=== PATIENT | male | born 1970 | race Caucasian/White ===

== ENCOUNTER 2018-07-16 09:39 | Emergency (ER) | payer OTHER ==
[2018-07-16] MEDS: SILVER NITRATE APPLICATOR STICK TP ONE (09:54)
--- NOTE | 2018-07-16 10:05 | ED Physician Documentation ---
General Adult - HISTORIAN Historian: patient - HPI Stated Complaint: Avulsion Chief Complaint: Laceration/Recheck/Suture Additional Information: Patient presents to ED with a laceration to right thumb after slicing it with a vegetable isa. Patient states he just took off a layer of skin and it's not that deep but he can't get the bleeding to stop. Onset: hours (1) Timing: still present Severity: mild Further Comments: no - ROS CONST: denies: fever EYES/ENT: none CVS/RESP: none GI/: none MS/SKIN/LYMPH: none - PAST HX Past History: hypertension Other History: none Surgeries/Procedures: none Allergies/Adverse Reactions: Allergies Allergy/AdvReac Type Severity Reaction Status Date / Time No Known Drug Allergies Allergy Verified 07/16/18 09:54 Home Medications: Ambulatory Orders Medication Instructions Recorded Atorvastatin Calcium 10 mg PO DAILY 07/16/18 Metformin HCl [Glucophage] 500 mg PO DAILY 07/16/18 amLODIPine BESYLATE [Norvasc] 5 mg PO DAILY 07/16/18 - SOCIAL HX Smoking History: non-smoker Alcohol Use: none Drug Use: none - FAMILY HX Family History: No - VITAL SIGNS Vital Signs: Vital Signs Temp Pulse Resp BP Pulse Ox 98.3 F 73 19 109/60 98 07/16/18 09:46 07/16/18 09:46 07/16/18 09:46 07/16/18 09:46 07/16/18 09:46 - REVIEWED ASSESSMENTS Nursing Assessment Reviewed: Yes Vitals Reviewed: Yes ED Results Lab/Radiology - Orders Orders: ED Orders Category Date Time Status Apply/change dressing QID Care 07/16/18 09:55 Ordered Silver Nitrate Applicator Med 07/16/18 09:44 Once 1 each TP NOW ONE General Adult Physical Exam - PHYSICAL EXAM GENERAL APPEARANCE: no distress EENT: [place] NECK: normal inspection RESPIRATORY: no resp distress, breath sounds normal CVS: reg rate & rhythm ABDOMEN: soft RECTAL: deferred BACK: no CVA tenderness SKIN: warm/dry, other (5mm skin avulsion to tip of right thumb) EXTREMITIES: non-tender NEURO: oriented X3 Discharge Clincal Impression: Skin avulsion Referrals: Primary Doctor,No [Primary Care Provider] - 2 Days Additional Instructions: Keep pressure dressing for next 24 hours. Condition: Stable Disposition: 01 HOME, SELF-CARE Decision to Admit: NO Date of Decison to Admit: 07/16/18 Decision Time: 10:09
[2018-07-16 10:13] VITALS: BP 112/67
== END 2018-07-16 10:11 | disposition home or self-care (01) ==
LOC: ED 09:39
DX: S61.309A Unspecified open wound of unspecified finger with damage to nail, initial encounter (principal); W26.8XXA Contact with other sharp object(s), not elsewhere classified, initial encounter; Y92.9 Unspecified place or not applicable; Y93.G3 Activity, cooking and baking; Y99.9 Unspecified external cause status
CPT/HCPCS: 99282